=== PATIENT | male | born 1980 | race Caucasian/White ===

== ENCOUNTER 2017-07-04 18:52 | Emergency (ER) | payer OTHER ==
[~2017-07-04] VITALS: Ht 188 cm; Wt 99.6 kg
[~2017-07-04 18:52] MED LIST: ARGININE PO; MACA ROOT PO; PANT40TA PO; [UNRECOGNIZED DRUG - REMARK] PO
[2017-07-04 19:01] VITALS: TEMP 36.9; Ht 188 cm; Wt 99.6 kg
[2017-07-04] MEDS ORDERED: KETOROLAC TROMETHAMINE 60 MG/2 ML VIAL IM STA (19:13)
--- NOTE | 2017-07-04 19:18 | EMERGENCY ROOM VISIT NOTE ---
ED Visit Note First contact with patient: 19:08 CHIEF COMPLAINT: Rib injury HISTORY OF PRESENT ILLNESS: This 36-year-old male patient presents to the emergency department ambulatory, complaining of pain in the left ribs after been tackled while playing rugby last night. The patient states he immediately began experiencing left rib pain, but did not hear any crack or popping sound. He states this afternoon, he noticed that the pain was worse and he was experiencing a clicking with bending over. The patient has been hesitant to take deep breaths, and states coughing and sneezing worsens the pain. Attempting to sit up from a lying position is painful. Denies shortness of breath or coughing up blood. The patient rates the pain as sharp and 5/10. The patient has taken Aleve with very minimal relief of the pain. No previous fractures to the ribs. The patient denies any other injury. The patient denies any abdominal pain, nausea, or vomiting. REVIEW OF SYSTEMS: A 6 system review of systems was completed with positives and pertinent negatives listed in the HPI. ALLERGIES: None MEDICATIONS: None PMH: None SOCIAL HISTORY: The patient lives locally with family. He denies drug, alcohol , tobacco use. PHYSICAL EXAM: VITALS: Vitals are noted on the nurse's note and reviewed by myself. Vital signs stable. GENERAL: This is a 36-year-old male, in no acute distress, nondiaphoretic, well- developed well-nourished. LUNGS: Clear to auscultation and breath sounds equal , no wheezes, rales, or rhonchi. HEART: Heart sounds are regular without murmurs, ectopy, gallop, or rub. CHEST: The left chest wall is tender to palpation over the 10-12th ribs but there is no fracture crepitus and no ecchymosis. There is no tachypnea or dyspnea. ABDOMEN: Positive bowel sounds x 4. Normal tympanic percussion. Soft, nontender, without masses or organomegaly. No guarding or rebound tenderness. NEURO: Patient was alert and oriented to person place and time. RADIOLOGY: X-Ray Left Ribs with PA Chest: L RIBS UNILATERAL WITH PA CHEST CLINICAL HISTORY: left rib pain (10-12 area), s/p trauma trauma. Pain. COMPARISON STUDY: None FINDINGS: Negative left ribs. Negative chest. No evidence pneumothorax. IMPRESSION: Negative study EMERGENCY DEPARTMENT COURSE: I examined the patient. The patient was given 60 mg Toradol IM. He did note mild improvement in his symptoms. X-rays of the chest with left rib detail was reviewed by myself and radiologist and show no acute fracture. I did offer a spirometer device, and the patient declines, stating he would not use it at home. I discussed discharge instructions with the patient, and advised him how to properly manage his pain. The patient was discharged home in good condition. DIFFERENTIAL DIAGNOSIS: Rib contusion, rib fracture, pneumothorax, pleural effusion, costochondritis, malignancy, and others DIAGNOSIS: Rib contusion TREATMENT and DISCHARGE INSTRUCTIONS: You have been treated in the Emergency Department for Rib contusion. For pain control, you can use the following lkno-bes-fxlzbmo medicines (if >12 yo): Ibuprofen(Motrin, Advil) may be used for fever or pain. Use 600mg every six hours as needed. Take with food. Avoid using more than 2400mg in a 24 hour period. Do not use 2400mg per day for more than three consecutive days without physician direction. Prolonged inappropriate use can lead to stomach upset or ulcers. (AND/OR) Acetaminophen(Tylenol) may be used for fever or pain. Use 1000mg every six hours as needed. Avoid using more than 3000mg in a 24 hour period. *You may alternate these medications every 3-4 hours for increased pain control. If this is an acute injury, ice can be applied to the area of pain for the first 3 days to help decrease pain and inflammation. After the first 3 days, a heating pad can be used over the area for continued soothing relief. To minimize your discomfort, you can hug a pillow while coughing or sneezing. Additionally, you should continue to force yourself to take nice, deep breaths. Full expansion of the lungs is necessary to prevent the accumulation of fluid in the lung tissue and development of pneumonia. You should schedule a follow-up appointment in 2-3 days with your Primary Care Provider for further evaluation and treatment of your back pain. Avoid physical activity in which you may get hit or tackled until you are pain- free. Return to the Emergency Department if your current symptoms worsen despite treatment course outlined above, or if you develop any of the following symptoms : intractable pain despite aforementioned treatment course, development of a wet cough, bloody cough, fever, chills, or increased shortness of breath. Problem List Medical Problems: (1) No Known Active Medical Problems Status: Chronic Current/Historical Medications Scheduled [Pre-Workout Powder], 1 DOSE PO UD Allergies Coded Allergies: No Known Allergies (Unverified , 02/15/16) Vital Signs Date Time Temp Pulse Resp B/P (MAP) Pulse Ox O2 Delivery O2 Flow Rate FiO2 07/04/17 20:33 56 16 146/91 99 07/04/17 19:01 36.9 72 18 146/81 99 Room Air Medications Administered Medications (Trade) Dose Ordered Sig/Oziel Route Start Time Stop Time Status Last Admin Dose Admin Ketorolac Tromethamine (Toradol Inj) 60 mg NOW STAT IM 07/04/17 19:13 07/04/17 19:14 DC 07/04/17 19:19 60 MG Departure Information Impression Primary Impression: Contusion of rib on left side Dispostion Home / Self-Care Condition GOOD Referrals No Doctor, Assigned (PCP) Micky VelozD.O. Patient Instructions ED Contusion Rib, My [facility] [address] Additional Instructions You have been treated in the Emergency Department for Rib contusion. For pain control, you can use the following bmyf-jpb-nrwxnnh medicines (if >12 yo): Ibuprofen(Motrin, Advil) may be used for fever or pain. Use 600mg every six hours as needed. Take with food. Avoid using more than 2400mg in a 24 hour period. Do not use 2400mg per day for more than three consecutive days without physician direction. Prolonged inappropriate use can lead to stomach upset or ulcers. (AND/OR) Acetaminophen(Tylenol) may be used for fever or pain. Use 1000mg every six hours as needed. Avoid using more than 3000mg in a 24 hour period. *You may alternate these medications every 3-4 hours for increased pain control. If this is an acute injury, ice can be applied to the area of pain for the first 3 days to help decrease pain and inflammation. After the first 3 days, a heating pad can be used over the area for continued soothing relief. To minimize your discomfort, you can hug a pillow while coughing or sneezing. Additionally, you should continue to force yourself to take nice, deep breaths. Full expansion of the lungs is necessary to prevent the accumulation of fluid in the lung tissue and development of pneumonia. You should schedule a follow-up appointment in 2-3 days with your Primary Care Provider for further evaluation and treatment of your back pain. Avoid physical activity in which you may get hit or tackled until you are pain- free. Return to the Emergency Department if your current symptoms worsen despite treatment course outlined above, or if you develop any of the following symptoms : intractable pain despite aforementioned treatment course, development of a wet cough, bloody cough, fever, chills, or increased shortness of breath. Problem Qualifiers Primary Impression: Contusion of rib on left side Encounter type: initial encounter Qualified Codes: S20.212A - Contusion of left front wall of thorax, initial encounter
[2017-07-04] MEDS ORDERED: PRE WORKOUT PO (19:26)
--- NOTE | 2017-07-04 19:51 | DIAGNOSTIC IMAGING REPORT ---
L RIBS UNILATERAL WITH PA CHEST CLINICAL HISTORY: left rib pain (10-12 area), s/p trauma trauma. Pain. COMPARISON STUDY: None FINDINGS: Negative left ribs. Negative chest. No evidence pneumothorax. IMPRESSION: Negative study The above report was generated using voice recognition software. It may contain grammatical, syntax or spelling errors. Electronically signed by: Olvin Bae M.D. 07/04/2017 7:50 PM Dictated Date/Time: 07/04/2017 7:48 PM
[2017-07-04 20:33] VITALS: BP 146/91; PULSE 56; O2SAT 99
== END 2017-07-04 20:30 | disposition home or self-care (01) ==
LOC: C.EDB 18:53 → C.EDD 20:30
DX: S20.212A Contusion of left front wall of thorax, initial encounter (principal); W03.XXXA Other fall on same level due to collision with another person, initial encounter; Y93.63 Activity, rugby; Y92.89 Other specified places as the place of occurrence of the external cause